=== PATIENT | female | born 1990 | race African-American/Black ===

== ENCOUNTER 2019-01-24 23:57 | Inpatient (IN) ==
[2019-01-25 01:00] LABS: BASO% 0.1 % (0.0-0.8); EOS% 1.1 % (0.0-10.0); HEMATOCRIT 29.9 % (37.0-47.0); HEMOGLOBIN 9.4 g/dL (12.0-16.0); LYMPH% 22.4 % (20.5-51.1); MCHC 31.4 g/dL (33-37); MCV 76.3 FL (81-99); MONO% 7.6 % (1.7-9.3); MPV 9.5 FL (7.4-10.4); NEUT% 68.7 % (42.2-75.2); PLT 439 X1000 (130-400); RBC 3.92 XMIL (4.2-5.4); RDW 17.4 % (11.5-14.5); WBC 9.27 X1000 (4.8-10.8)
[2019-01-25 01:01] LABS: BASO# 0.01 X1000 (0.0-0.2); IMM GRAN# 0.01 X1000 (0.0-0.04); IMM GRAN% 0.1 % (0.0-0.5); LYMPH# 2.08 X1000 (1.2-3.4); NEUT# 6.37 X1000 (1.4-6.5)
[2019-01-25] MEDS ORDERED: NS 1,000 ML IV ONE ×2 (01:13→02:39)
--- NOTE | 2019-01-25 01:54 | PROVIDER DOCUMENTATION ---
This chart was entered by Annetta Kothari Scribe, acting as scribe for Meet Esquivel MD. HPI-Syncope/Dizziness - General Chief Complaint: Syncope Stated Complaint: Syncope Time Seen by Provider: 01/25/19 00:13 Source: patient Allergies/Adverse Reactions: Patient Allergies Allergy/AdvReac Type Severity Reaction Status Date / Time hydrocodone bitartrate * Allergy Mild ITCHING Verified 10/22/18 03:13 [From [place]] Home Medications: Home Medication List Medication Instructions Recorded Confirmed Last Taken Type Pnv Comb.no58/Iron Bisgly/FA 1 cap PO DAILY 10/01/18 10/22/18 10/21/18 History [ Capsule] Cyclobenzaprine HCl 1 tab PO PRN PRN 10/22/18 10/22/18 Unknown History Metronidazole 500 mg PO BID #14 tab 10/22/18 Unknown Rx Calcium Carb, Citrate/Vit D3 1 ea PO DAILY #90 tablet.er 12/06/18 Unknown Rx [Calcium + D3 ER Tablet] - History of Present Illness-Syncope/Dizzy Nature of Presenting Problem: 28 yobf presents w/cc syncopal episode, blurred vision and dizziness tonight at 2330. pt arrived via ems. pt sts she began to feel dizzy and loc. pt is 2 months . had btl in hsv 2 wks ago. pt has hx of anemia. denies rectal bleeding, vaginal bleeding, discharge, dysuria, abd pain and sob. pt rpts not being outside today, has air conditioning at home. Onset/Duration: reports: just prior to arrival Timing: reports: gone now Position/Activity at time of episode: reports: standing Symptoms prior to episode: reports: other (dizziness) Review of Systems - Adult - REVIEW OF SYSTEMS - ADULT Constitutional: reports: no symptoms reported Eyes: reports: see HPI, blurred vision. denies: decreased vision, double vision, eye pain Ears, Nose, Mouth & Throat: reports: no symptoms reported Cardiovascular: reports: no symptoms reported Respiratory: reports: no symptoms reported. denies: pleurisy, shortness of breath, wheezing Gastrointestinal: reports: no symptoms reported. denies: abdominal pain, diarrhea, nausea, vomiting Genitourinary: reports: no symptoms reported. denies: dysuria, discharge, flank pain Musculoskeletal: reports: no symptoms reported Integumentary: reports: no symptoms reported Neurological: reports: see HPI, dizziness/vertigo, syncope. denies: ataxia, headache/migraines, slurred speech Psychiatric: reports: no symptoms reported Endocrine: reports: no symptoms reported Hematologic/Lymphatic: reports: no symptoms reported Allergic/Immunologic: reports: no symptoms reported All Other Systems: Reviewed and Negative Past History - Adult - PAST MEDICAL HISTORY-ADULT Review of Records: reports: Old Records Reviewed, Nursing Assessment Review, Medications Reviewed, Social history reviewed & non-contributory. Major Childhood Illnesses: reports: denies history Cardiovascular: reports: denies history Respiratory: reports: asthma Gastrointestinal: reports: denies history Obstetrical/Gynecological: reports: endometriosis, ovarian cysts Genitourinary: reports: denies history Musculoskeletal: reports: other (scoliosis) Neurological: reports: denies history Psychiatric: reports: anxiety Endocrine/Immune: reports: anemia Other Conditions: reports: denies history - PRIOR SURGERIES/PROCEDURES Surgical/Procedure History: reports: recent surgery, appendectomy, BTL (2 wks ago), tonsillectomy, other (D & C) - IMMUNIZATION STATUS Childhood Immunizations: See Nurse Assessment Flu Vaccine: See Nurse Assessment - FAMILY HISTORY Family History: reviewed, not pertinent - SOCIAL HISTORY Smoking: other (former smoker) Substance Use: none/never Physical Exam-General - PHYSICAL EXAM-ADULT Initial Vital Signs Reviewed: Yes - CONSTITUTIONAL General Appearance: appears well, alert, no apparent distress - EYES Eyes: PERRL/EOMI, pink conjunctivae - HEAD, EARS, NOSE, MOUTH & THROAT HENMT: normocephalic/atraumatic, moist mucous membranes, normal ENT inspection - NECK Neck: non-tender, full range of motion, supple, normal inspection - RESPIRATORY Respiratory: chest non-tender, lungs clear, normal breath sounds - CARDIOVASCULAR Cardiovascular: normal peripheral pulses, regular rate, rhythm - GASTROINTESTINAL (ABDOMEN) Abdominal Exam: normal bowel sounds, non tender, soft - LYMPHATIC Lymphatic: no adenopathy - MUSCULOSKELETAL Back Exam: normal inspection, no CVA tenderness, no vertebral tenderness Extremity: normal range of motion, non-tender, normal inspection Peripheral Pulses: radial (R): 2+, radial (L): 2+ - SKIN Integumentary: normal color, normal turgor, warm/dry - NEUROLOGIC Neurologic: assistant manager quality management II-XII nml as tested, grossly normal, no motor/sensory deficits - PSYCHIATRIC Psych/Mental Status: normal mood/affect, normal thought content, normal thought process, oriented x 3 Progress - PLAN OF CARE/RESULTS Progress/Plan/Lab Results: Vital Signs - 8 hr 01/24/19 23:58 01/25/19 00:45 Temperature 98.3 F Pulse Rate 64 Pulse Rate [Sitting] 72 Pulse Rate [Standing] 74 Pulse Rate [Supine] 69 Respiratory Rate 16 Blood Pressure 123/82 Blood Pressure [Sitting] 124/85 Blood Pressure [Standing] 121/86 Blood Pressure [Supine] 120/81 O2 Sat by Pulse Oximetry 97 Bedside Urine ED: Urine Bedside Start: 01/25/19 00:14 Freq: ORDERED Status: Inactive Protocol: Activity Type Activity Date Activity User E-Sign Co-Sign Detail Recorded Client Recorded Date Recorded By Edit Status 01/25/19 01:02 [id number] Active=>Inactive [id number] 01/25/19 01:02 [id number] Laboratory Results - last 24 hr 01/25/19 01/25/19 00:50 00:50 WBC 9.27 RBC 3.92 L Hgb 9.4 L Hct 29.9 L MCV 76.3 L MCH 24.0 L MCHC 31.4 L RDW Std Deviation 17.4 H Plt Count 439 H MPV 9.5 Immature Gran % (Auto) 0.1 Neut % (Auto) 68.7 Lymph % (Auto) 22.4 [place] % (Auto) 7.6 Eos % (Auto) 1.1 Baso % (Auto) 0.1 Immature Gran # (Auto) 0.01 Neut # (Auto) 6.37 Lymph # (Auto) 2.08 Coos # (Auto) 0.70 H Eos # (Auto) 0.10 Baso # (Auto) 0.01 Serum , Qual NEGATIVE Orders Category Date Time Status Orthostatic Vital Signs NOW Care 01/25/19 00:13 Active BMP [BASIC METABOLIC PANEL] [CHEM] Stat Lab 01/25/19 00:50 Received CBC WITH ELECTRONIC DIFF [HEME] Stat Lab 01/25/19 00:50 Completed TEST-SERUM [PREG] Stat Lab 01/25/19 00:50 Completed 0.9% Sodium Chloride Inj [Ns] 1,000 ml Med 01/25/19 01:13 Active IV 999 mls/hr Result Diagrams: 01/25/19 00:50 Departure - Departure Date of Disposition Decision: 01/25/19 Time of Disposition Decision: 01:56 DIAGNOSIS: Syncope Qualifiers: Syncope type: unspecified Qualified Code(s): R55 - Syncope and collapse Disposition: HOME 01 Certified Medical Emergency: Emergent Condition: Stable - Critical Care Note This patient required my direct & personal management of CC.: No Attestation - Physician/ SHAVONNE Attestation Patient care was provided by Advanced Practice Provider:: No The physician spent face to face time with patient:: Yes Advanced Practice Provider documentation review:: Supervising physician onsite and consulted in the evaluation and care of this patient. The physician did have a face to face encounter with the patient. This chart was documented by the indicated scribe, (Annetta Kothari Scribe) and accurately reflects the services I performed and decisions made by me, Meet Esquivel MD, as attested by the provider's signature.
[2019-01-25 02:09] LABS: AGAP 10; BUN 7 mg/dL (8-22); CALCIUM 8.6 mg/dL (8.8-10.2); CHLORIDE 106 mmol/L (98-107); COSMO 279; CREATININE 0.5 mg/dL (0.5-0.9); ESTIMATED GFR > 60; GLUCOSE 93 mg/dL (70-104); POTASSIUM 2.8 mmol/L (3.5-5.1); SODIUM 141 mmol/L (136-145); TCO2 25 mmol/L (25-35)
[2019-01-25] MEDS ORDERED: PHENERGAN PO ONE (02:19)
[2019-01-25] MEDS ORDERED: POTASSIUM CHLORIDE 40 MEQ/SWI 40 MEQ/100 ML IVPB IV ONE ×2 (02:30→02:41)
[2019-01-25] MEDS ORDERED: SODIUM CHLORIDE 0.9% INJ ONE (02:40)
[2019-01-25] MEDS ORDERED: PHENERGAN IV ONE (02:40)
[2019-01-25 03:38] LABS: BILIRUBIN URINE NEGATIVE (NEGATIVE); BLOOD URINE NEGATIVE (NEGATIVE); GLUCOSE URINE NEGATIVE (NEGATIVE); KETONE URINE 1+(Small) mg/dL (NEGATIVE); LEUKOCYTES URINE NEGATIVE (NEGATIVE); NITRITE URINE NEGATIVE (NEGATIVE); PROTEIN URINE NEGATIVE (NEGATIVE); UR AMPHETAMINES QUAL NONE DETECTED (NONE DETECT); UR BARBITUATES QUAL NONE DETECTED (NONE DETECT); UR BENZODIAZEPIN QUAL PRESUMPTIVE POSITIVE (NONE DETECT); UR COCAINE QUAL NONE DETECTED (NONE DETECT); UR METHADONE QUAL NONE DETECTED (NONE DETECT); UR METHAMPHETAMINE QUAL NONE DETECTED (NONE DETECT); UROBILINOGEN URINE NORMAL
[2019-01-25 03:39] LABS: CLARITY CLEAR (CLEAR); COLOR YELLOW; UR CANNABINOIDS QUAL PRESUMPTIVE POSITIVE (NONE DETECT); UR OPIATES QUAL PRESUMPTIVE POSITIVE (NONE DETECT); UR OXYCODONE QUAL NONE DETECTED (NONE DETECT); UR PCP QUAL NONE DETECTED (NONE DETECT); UR PROPOXYPHENE QUAL NONE DETECTED (NONE DETECT); UR TCA QUAL NONE DETECTED (NONE DETECT)
[2019-01-25 03:41] LABS: URINE BACTERIA 2+ /HFP; URINE CAST NONE SEEN /LPF; URINE CRYSTAL NONE SEEN /HPF; URINE EPITHELIAL CELLS <10 /HPF (<10); URINE SOURCE CLEAN CATCH; URINE YEAST NONE SEEN /HPF
[2019-01-25 03:42] LABS: URINE WBC <10 /HPF (<10)
[2019-01-25] MEDS ORDERED: TYLENOL PO ONE (03:51)
--- NOTE | 2019-01-25 04:07 | EKG Report ---
Test Performed on : 01/25/2019 02:08:24 AM Test Reason : syncope Blood Pressure : / mmHG Vent. Rate : 060 BPM Atrial Rate : 060 BPM P-R Int : 158 ms QRS Dur : 074 ms QT Int : 560 ms P-R-T Axes : 044 045 075 degrees QTc Int : 560 ms Normal sinus rhythm. with sinus arrhythmia. Prolonged QT Abnormal ECG When compared with ECG of 25-JAN-2011 16:08, Nonspecific T wave abnormality no longer evident in Inferior leads QT has lengthened Unconfirmed Result
--- NOTE | 2019-01-25 06:45 | EKG Report ---
Test Performed on : 01/25/2019 06:38:46 AM Test Reason : pain Blood Pressure : / mmHG Vent. Rate : 064 BPM Atrial Rate : 064 BPM P-R Int : 152 ms QRS Dur : 070 ms QT Int : 560 ms P-R-T Axes : 028 034 078 degrees QTc Int : 577 ms Normal sinus rhythm. with sinus arrhythmia. Prolonged QT Abnormal ECG When compared with ECG of 25-JAN-2019 02:08, (Unconfirmed) No significant change was found Unconfirmed Result
[2019-01-25 07:41] LABS: AGAP 10; BUN 5 mg/dL (8-22); CALCIUM 8.3 mg/dL (8.8-10.2); CHLORIDE 109 mmol/L (98-107); COSMO 280; CREATININE 0.5 mg/dL (0.5-0.9); ESTIMATED GFR > 60; GLUCOSE 134 mg/dL (70-104); POTASSIUM 3.5 mmol/L (3.5-5.1); SODIUM 141 mmol/L (136-145); TCO2 22 mmol/L (25-35)
[2019-01-25] MEDS ORDERED: MAGNESIUM SULFATE 2 GM/S.W.I. 2 GM/50 ML IVPB IV ONE (08:15)
[2019-01-25] MEDS ORDERED: POTASSIUM CHLORIDE 20 MEQ/SWI 20 MEQ/100 ML IVPB IV ONE (08:16)
--- NOTE | 2019-01-25 09:40 | EKG Report ---
Test Performed on : 01/25/2019 08:54:57 AM Test Reason : Irregular rhythm Blood Pressure : / mmHG Vent. Rate : 054 BPM Atrial Rate : 054 BPM P-R Int : 150 ms QRS Dur : 080 ms QT Int : 576 ms P-R-T Axes : 036 069 072 degrees QTc Int : 546 ms Sinus bradycardia. Prolonged QT Abnormal ECG When compared with ECG of 25-JAN-2019 06:38, (Unconfirmed) No significant change was found Unconfirmed Result
[2019-01-25] MEDS ORDERED: NS 0 ML ONE (10:19)
[2019-01-25] MEDS ORDERED: NS 250 ML ONE ×2 (10:24→15:07)
[2019-01-25 10:51] LABS: ALBUMIN 3.8 g/dL (3.5-5.0); ALKALINE PHOSPHATASE 91 U/L (32-104); DIRECT BILIRUBIN < 0.20 mg/dL (0.00-0.20); GOT 14 U/L (10-30); GPT 13 U/L (10-36); TOTAL PROTEIN 6.7 g/dL (6.3-8.3)
--- NOTE | 2019-01-25 11:53 | HISTORY AND PHYSICAL ---
PRIMARY CARE PROVIDER: None. CHIEF COMPLAINT: Syncope. HISTORY OF PRESENT ILLNESS: Ms. Cruz is a 28-year-old female, who carries a past medical history of asthma, anxiety, anemia, and scoliosis. She reports she had a baby 2 months ago and had a tubal ligation 2 weeks ago. She has also had some electrolyte imbalances that her OB has been replenishing as well as having her on iron. She reported yesterday after she started to feel dizzy. After the feeding, she went to go get up and had what she felt like was a syncopal episode. She does not really remember anything until she came around again. Her mother was present at that time, and she had been having these dizzy spells prior. Workup in the ED revealed hypokalemia at 2.8. Her EKG did show a prolonged QT at 560 with a QTc of 560. Repeat EKG continued to show QTc at 560, last one was 576. In the ED, her potassium was replenished. She was given 1000 L bolus and initiated on IV fluids, holding anything that would prolong her QTc. Repeat laboratory data this morning showed magnesium of 1.6 and a potassium of 3.5. We have gone ahead and initiated her on 2 mg of magnesium as well as doing another 20 of IV potassium. During this time while the patient was sleeping on her side, she appeared to go into torsades. They collected an EKG, got her IV magnesium going, and the patient was sleeping soundly. She had to be shook awake and she reported feeling dizzy again. We spoke with Cardiology on the phone, they agreed with continuing with IV magnesium and get an echocardiogram to rule out any cardiomyopathy, likely torsades, however, the patient has tested positive for opiates, benzodiazepines, and cannabinoids. She appears to be a little clinically dehydrated, which these all could be contributing factors and we will continue to monitor her on telemetry and await further cardiac recommendations. PAST MEDICAL HISTORY: Asthma, anxiety, endometriosis, anemia, scoliosis, ovarian cyst. PAST SURGICAL HISTORY: 1. Appendectomy. 2. Tubal ligation 2 weeks ago. 3. Tonsillectomy. 4. D and C. SOCIAL HISTORY: The patient just had her second child 2 months ago. Her mother is at the bedside. No use of tobacco. ALLERGIES: Hydrocodone. HOME MEDICATIONS: Have not been verified. REVIEW OF SYSTEMS: A 12-point review of systems complete and negative except for those mentioned in the HPI. PHYSICAL EXAMINATION: VITAL SIGNS: Temperature is 98.4, heart rate 61, respirations 20, blood pressure 148/90, O2 is 99% on room air. GENERAL: Ms. Cruz is a 28-year-old female, who is lying in the bed with her 2-month-old, mother at bedside. HEENT: Atraumatic, normocephalic. PERRL. NECK: Supple. Trachea midline. CARDIOVASCULAR: S1, S2 appreciated. No murmurs, gallops, or rubs noted. RESPIRATORY: Lung sounds clear bilaterally. GASTROINTESTINAL: Abdomen is soft, nontender, nondistended, positive bowel sounds 4 quadrants. EXTREMITIES: No signs of clubbing or cyanosis. NEUROLOGIC: No focal deficits noted. The patient is awake, alert, oriented, follows commands, moves all extremities. DIAGNOSTIC DATA: Serial EKGs showed normal sinus rhythm with prolonged QT in the 500s. LABORATORY DATA: White count 9, hemoglobin and hematocrit 9 and 29, platelet count of 439. Sodium 141, potassium 3.5, BUN 5, creatinine 0.5, blood glucose is 134. Magnesium 1.6. test is negative. Urinalysis shows 2+ bacteria with no urinary complaints. Toxicology positive for opiates, benzodiazepines, and cannabinoids. ASSESSMENT AND PLAN: 1. Syncopal episode witnessed by her mother, which could be multifactorial secondary to the patient being dehydrated, along with her positive toxicology screen with benzodiazepines, opiates, and cannabinoids, vasovagal, dehydration. We will continue with IV fluids, continue to replenish her electrolytes. 2. Questionable torsades. We have consulted Cardiology. We are replenishing her magnesium and continuing to replete her potassium. Checking an echocardiogram to rule out any cardiomyopathy. They are also checking a C-reactive protein, ferritin, hepatic function, lipid profile, and total iron. 3. Asymptomatic bacteruria. Will continue to trend her urine culture. Her white count was normal. She has been afebrile not complaining of any urinary symptoms at this time. 4. Further recommendations to follow physician evaluation, laboratory, and diagnostic data. Dictated by ADÁN Hi for Rafael Mcguire MD cc: Rafael Mcguire MD [facility]
--- NOTE | 2019-01-25 15:50 | ECHO REPORT ---
ORDER DATE: 01/25/2019 ECHOCARDIOGRAPHIC MEASUREMENTS: 1. Septal thickness 1.0. 2. Left ventricular internal diameter diastole 4.5. 3. Posterior wall thickness 1.0. 4. Left ventricular internal diameter systole 3.8. 5. Aortic root 3.1. 6. Left atrium 3.6. SUMMARY: 1. Fair quality study. Apical acoustic window is challenging. 2. Aortic valve is trileaflet and opens normally on 2-dimensional images. Peak gradient across the aortic valve is less than 10 mmHg. There is trace aortic regurgitation. Mitral, tricuspid, and pulmonic valves are without evidence of structural abnormality with mild mitral regurgitation, mild tricuspid regurgitation, and mild pulmonic insufficiency. Estimated systolic PA pressure by Doppler is 45 mmHg suggesting mild pulmonary hypertension. The aortic root is normal in size. 3. Normal left ventricular dimensions demonstrated. Estimated left ventricular ejection fraction is approximately 30% in the setting of global hypokinesis. Doppler suggests grade 1 left ventricular diastolic dysfunction. The left atrium, right atrium, right ventricle are normal in size with grossly preserved right ventricular systolic function. 4. No pericardial effusion. 5. Appearance of inferior vena cava suggests normal central venous pressure. cc: Tiago Fung MD
[2019-01-25 15:57] LABS: C REACTIVE PROT QUANT 2.36 mg/L (0.00-5.00)
[2019-01-25] MEDS ORDERED: MAGNESIUM SULFATE 4 GM/S.W.I. 4 GM/100 ML IVPB IV ONE (16:21)
[2019-01-25] MEDS ORDERED: VENOFER 200 MG in NS 150 ML IV SCH (17:00)
[2019-01-25] MEDS: INDERAL PO SCH ×2 (17:16→21:51)
[2019-01-25] MEDS ORDERED: POTASSIUM CHLORIDE 20% LIQUID PO ONE (18:06)
[2019-01-25] MEDS ORDERED: POTASSIUM CHLORIDE 60 MEQ in NS 500 ML IV SCH (18:30)
--- NOTE | 2019-01-25 22:42 | CARDIOLOGY CONSULTATION ---
DATE: 01/25/2019 CHIEF COMPLAINT: Syncope. HISTORY: A 28-year-old female who presented to the emergency room yesterday at about midnight after having episode of syncope at home. This was witnessed by the mother. Apparently at about 11:30 or so, she stood up to take care of her child, and as she did that, she felt dizzy first and then collapsed on a couch. According to the mother, she really was unconscious, and for a brief period of time, she had some jerkiness or shakiness as in a seizure. She came back to her senses about 10 minutes later. By the time the ambulance got there, she was awake. In the ER, her initial blood pressure was 123/82. Her initial pulse was 64. Initial electrocardiogram showed sinus rhythm, rate 60 beats per minute with a QTc of 560 milliseconds. That was at 0208 hours in the morning. They then admitted her for observation. They noted a potassium of 2.8 mEq at the time of initial encounter, and they have given her supplements. A follow-up potassium at 7 a.m. is 3.5 mEq. Her BUN and creatinine were normal. Her magnesium was 1.6, and she has been given IV supplements. At any rate, the patient at about 8:40 this morning had 1 minute worth of torsades carlie pointes. She felt dizzy at that time, did not lose consciousness. That was recorded in the lunchroom monitor. That motivated this consultation. I am seeing the patient at about 4 p.m. She is not having any symptoms. She denies having any chest pain, shortness of breath, or palpitations. Her past history immediate is recent delivery of a healthy child, vaginal, at the [facility] about 2 months ago. No immediate complications, other than her blood pressure was going up. She has had another child, 2 years old, and she has had miscarriages in between, a total of 6. She says that her weight is about 7 pounds greater than when she started her . She does not feel swollen. She has no previous history of heart disease. She does have history of endometriosis. She has had issues with high blood pressure during . SURGICAL HISTORY: Includes appendectomy and recent tubal ligation. SOCIAL HISTORY: She is currently staying with her mother. ALLERGIES: Hydrocodone. HOME MEDICATIONS: She only takes a vitamin and calcium. REVIEW OF SYSTEMS: The patient admits to the fact that she developed a tooth ache and had taken half of a [place] pill on the day of this event. The patient did receive 1 dose of promethazine in the emergency room at about 2:40 in the morning. The patient has no other issues. Basically, she feels healthy. FAMILY HISTORY: Father had a cardiac from recurrent myocardial infarction in his early 40s. Mother is alive. PHYSICAL EXAMINATION: Right now, blood pressure 141/101, temperature 91 degrees, pulse 73, respirations 20. The patient is awake, alert, in no distress.HEENT: Unremarkable. Chest: Clear to auscultation and percussion. Heart sounds regular and rhythmic. I do not hear a gallop or murmur. Abdomen is nontender, slightly prominent. Extremities show good pulses. No peripheral edema. Neurologic: Nonfocal. Moves 4 extremities. IMPRESSION: 1. Patient who presents with a syncopal episode with documentation of torsades carlie pointes. This coincided with hypokalemia which is significant and abnormal EKG with QT prolongation and a recent intake of opioids. 2. Significant iron deficiency anemia. The patient has a hemoglobin of 9.4 with an MCV of 76, total iron 21, TIBC 391, saturation 5%. Her albumin and globulin levels are normal. Her LDL cholesterol is 70, total cholesterol 128, HDL 47. RECOMMENDATION: At this time, we will try to optimize her potassium level and make sure that she does not have any condition that leads to wasting potassium. We will try to replace her iron intravenously. We will monitor her magnesium. She needs to be observed on telemetry. We may have to get a consultation with damage inside adjuster to determine whether or not an intervention is required. At this time, first we will make sure that all her electrolytes are within normal range, and we will take it from there. Thank you for asking us to participate in her evaluation. cc: Hood Yeh MD
[2019-01-26] MEDS ORDERED: POTASSIUM CHLORIDE 60 MEQ in NS 500 ML IV ONE (00:19)
[2019-01-26] MEDS: INDERAL PO SCH ×2 (04:01→08:47)
--- NOTE | 2019-01-26 05:45 | EKG Report ---
Test Performed on : 01/26/2019 05:36:14 AM Test Reason : Torsades de Pointes Blood Pressure : / mmHG Vent. Rate : 071 BPM Atrial Rate : 071 BPM P-R Int : 152 ms QRS Dur : 068 ms QT Int : 496 ms P-R-T Axes : 022 030 113 degrees QTc Int : 538 ms Normal sinus rhythm. T wave abnormality, consider lateral ischemia Prolonged QT Abnormal ECG When compared with ECG of 25-JAN-2019 08:54, (Unconfirmed) T wave inversion now evident in Lateral leads Unconfirmed Result
[2019-01-26 07:49] LABS: AGAP 9; ALBUMIN 4.1 g/dL (3.5-5.0); ALKALINE PHOSPHATASE 96 U/L (32-104); BUN 2 mg/dL (8-22); CALCIUM 8.6 mg/dL (8.8-10.2); CHLORIDE 110 mmol/L (98-107); COSMO 275; CREATININE 0.6 mg/dL (0.5-0.9); ESTIMATED GFR > 60; GLUCOSE 92 mg/dL (70-104); GOT 11 U/L (10-30); GPT 14 U/L (10-36); MAGNESIUM 2.2 mg/dL (1.5-2.7); POTASSIUM 4.5 mmol/L (3.5-5.1); SODIUM 140 mmol/L (136-145); TCO2 21 mmol/L (25-35); TOTAL PROTEIN 7.2 g/dL (6.3-8.3)
--- NOTE | 2019-01-26 08:30 | EKG Report ---
Test Performed on : 01/26/2019 08:13:20 AM Test Reason : multiple PVC's Blood Pressure : / mmHG Vent. Rate : 066 BPM Atrial Rate : 066 BPM P-R Int : 154 ms QRS Dur : 072 ms QT Int : 498 ms P-R-T Axes : 020 033 119 degrees QTc Int : 522 ms Normal sinus rhythm. T wave abnormality, consider lateral ischemia Prolonged QT Abnormal ECG When compared with ECG of 26-JAN-2019 05:36, (Unconfirmed) No significant change was found Unconfirmed Result
[2019-01-26] MEDS ORDERED: ALTACE PO SCH (09:00)
[2019-01-26 09:05] VITALS: BP 140/100
[2019-01-26] MEDS ORDERED: LOPRESSOR 10 MG in NS 50 ML IV ONE (11:10)
[2019-01-26] MEDS ORDERED: LOPRESSOR ONE (11:12)
[2019-01-26] MEDS ORDERED: NS 50 ML ONE (11:12)
[2019-01-26] MEDS ORDERED: NS 50 ML IV SCH (11:15)
--- NOTE | 2019-01-26 14:31 | EKG Report ---
Test Performed on : 01/26/2019 11:17:40 AM Test Reason : PVCs Blood Pressure : / mmHG Vent. Rate : 093 BPM Atrial Rate : 086 BPM P-R Int : 146 ms QRS Dur : 076 ms QT Int : 624 ms P-R-T Axes : 016 047 132 degrees QTc Int : 775 ms Undetermined rhythm Marked T wave abnormality, consider lateral ischemia Abnormal ECG When compared with ECG of 26-JAN-2019 11:17, (Unconfirmed) Current undetermined rhythm precludes rhythm comparison, needs review QT has lengthened Unconfirmed Result
--- NOTE | 2019-01-27 23:40 | DISCHARGE SUMMARY ---
ADMISSION DATE: 01/25/2019 DISCHARGE DATE: 01/26/2019 DISCHARGE DIAGNOSIS: 1. Syncope. 2. Prolonged QT syndrome. 3. Tachycardia with runs of ventricular tachycardia. 4. History of appendectomy. 5. Tubal ligation 2 weeks ago, status post delivery. 6. History of tonsillectomy. 7. Cardiomyopathy with an ejection fraction read as up to 30%. CONSULTATIONS: Cardiology. PROCEDURES: None. BRIEF HOSPITAL COURSE: The patient is a 28-year-old female who is roughly 2 months . Presented to the hospital after being 2 weeks status post tubal ligation. She is having some lightheaded episodes, dizziness and some syncope. While in the hospital she was noted to have a prolonged QT syndrome as well as 2 several beat runs of ventricular tachycardia. Dr. Yeh was consulted with Cardiology and we greatly appreciate his evaluation. The patient was moved to the ICU. Echo was performed and was read although there is some discrepancy on her actual ejection fraction. While in the ICU she was noted to have another small beat run of ventricular tachycardia while Dr. Yeh was present. DISPOSITION: The patient will be discharged and transferred to [facility] for further cardiac evaluation. TIME: Greater than 30 minutes was spent in discharge planning and instructions as well as attempting to answer the patient and her mother's questions. cc: Rafael Mcguire MD
== END 2019-01-26 11:45 | disposition short-term general hospital (02) | DRG 309 ==
LOC: P.ED 23:57 → P.MEDSURG 23:57 → OBSVTOIN 01-25 04:27 → P.MEDSURG 01-25 06:26 → P.ICU 01-25 16:45
PROVIDERS: ATTEND Family Medicine
CPT/HCPCS: 80048; 80053; 80061; 80076; 80104; 80301; 80305; 81001; 82728; 83540; 83550; 83721; 83735; 84132; 84703; 85025; 86140; 87088; 93005; 93306; A9270; G0431; G0434; G0477; J1756; J2550; J3475; J3480; J7030; J7040; J7050